=== PATIENT | male | born 1995 | race Caucasian/White ===

== ENCOUNTER 2017-12-04 15:34 | Emergency (ER) | payer MEDICAID, OTHER, SELFPAY ==
[~2017-12-04] VITALS: Ht 180.3 cm; Wt 63.5 kg
[2017-12-04 15:35] VITALS: BP 114/72
== END 2017-12-04 16:24 ==
LOC: ED 16:20
DX: H10.11 Acute atopic conjunctivitis, right eye (principal)
CPT/HCPCS: 99283